=== PATIENT | male | born 1965 | race American Indian/Alaskan Native ===

== ENCOUNTER 2018-08-15 12:41 | Emergency (ER) | payer SELFPAY ==
[2018-08-15 13:04] VITALS: BP 130/91
--- NOTE | 2018-08-15 13:05 | Emergency Department Report ---
Blank Doc - Documentation Documentation: 53 y/o male with pmh of HTN presents to ED c/o 2-3 day history of weakness, sob, chest tightness with associated cough and white mucus. no fever or chills no sweats. no nausea or vomiting. Plan CXR EKG
--- NOTE | 2018-08-15 13:20 | XRay Report ---
ROUTINE CHEST, TWO VIEWS: HISTORY: Cough. The trachea, heart, mediastinal contour, lung abdi and bony thorax are unremarkable. IMPRESSION: Unremarkable chest x-ray.
--- NOTE | 2018-08-15 13:41 | Emergency Department Report ---
Minor Respiratory - HPI Chief Complaint: Upper Respiratory Infection Stated Complaint: YENNY/TIGHT CHEST/COUGHING Time Seen by Provider: 08/15/18 13:02 Duration: 3 Days Pain Location: Chest Severity: mild Minor Respiratory: Yes Rhinorrhea, Yes Able to Tolerate Fluids, Yes Ear Pain, Yes Cough (cream colored sputum), Yes Shortness of Breath, No Sore Throat, No Sick Contacts, No Hemoptysis, No Chest Pain, No Fever Other History: Pt has a heavy smoking history ED Review of Systems ROS: Stated complaint: YENNY/TIGHT CHEST/COUGHING Other details as noted in HPI Comment: All other systems reviewed and negative ED Past Medical Hx - Past Medical History Hx Hypertension: Yes - Surgical History Past Surgical History?: No - Social History Smoking Status: Current Some Day Smoker Substance Use Type: None - Medications Home Medications: Home Medications Medication Instructions Recorded Confirmed Last Taken Type Lisinopril [Zestril TAB] 10 mg PO QDAY #30 tablet 11/21/14 Unknown Rx Sulfamethoxazole/Trimethoprim 1 each PO BID #14 tablet 11/21/14 Unknown Rx [Bactrim Ds] Azithromycin [Zithromax Z-FABRICIO] 250 mg PO DAILY #6 tablet 08/15/18 Unknown Rx Benzonatate [Tessalon Perles] 100 mg PO Q8HR #10 capsule 08/15/18 Unknown Rx predniSONE [Deltasone] 20 mg PO QDAY #5 tab 08/15/18 Unknown Rx Minor Respiratory Exam - Exam General: Vital signs noted. No distress. Alert and acting appropriately. HEENT: Yes Moist Mucous Membranes, No Pharyngeal Erythema, No Pharyngeal Exudates, No Rhinorrhea, No Conjuctival Injection, No Frontal Tenderness, No Maxillary Tenderness Ear: Neither TM Bulge, Neither TM Erythema, Neither EAC Pain, Neither EAC Discharge Neck: Yes Supple, No Adenopathy Lungs: Yes Good Air Exchange, Yes Cough, No Wheezes, No Ronchi, No Stridor, No Labored Respirations, No Retractions, No Use of Accessory Muscles, No Other Abnormal Lung Sounds Heart: Yes Regular, No Murmur Abdomen: Yes Normal Bowel Sounds, No Tenderness, No Peritoneal Signs Skin: No Rash, No Edema Neurologic: Alert and oriented, no deficits. Musculoskeletal: Unremarkable. ED Course Vital Signs 08/15/18 13:00 Temperature 97.5 F L Pulse Rate 72 Respiratory 20 Rate Blood Pressure 130/91 O2 Sat by Pulse 100 Oximetry ED Medical Decision Making - EKG Data -: EKG Interpreted by Me EKG shows normal: sinus rhythm, axis, intervals, QRS complexes, ST-T waves Rate: normal - EKG Data Interpretation: normal EKG - Medical Decision Making He'll be treated for smoker's bronchitis and be discharged home. Critical care attestation.: If time is entered above; I have spent that time in minutes in the direct care of this critically ill patient, excluding procedure time. ED Disposition Clinical Impression: Acute bronchitis Qualifiers: Bronchitis organism: unspecified organism Qualified Code(s): J20.9 - Acute bronchitis, unspecified Disposition: DC-01 TO HOME OR SELFCARE Is pt being admited?: No Does the pt Need Aspirin: No Condition: Stable Instructions: Acute Bronchitis (ED) Time of Disposition: 13:41
== END 2018-08-15 13:54 | disposition home or self-care (01) ==
LOC: ED 12:41
DX: J20.9 Acute bronchitis, unspecified (principal); F17.200 Nicotine dependence, unspecified, uncomplicated; I10 Essential (primary) hypertension
CPT/HCPCS: 71046; 93005; 93010; 99283